=== PATIENT | female | born 2000 | race Caucasian/White ===

== ENCOUNTER 2018-11-05 11:33 | Emergency (ER) | payer OTHER ==
[~2018-11-05] VITALS: Ht 152.4 cm; Wt 68.0 kg
[2018-11-05 11:38] VITALS: BP 124/72
--- NOTE | 2018-11-05 11:42 | NUR ---
BIB SELF. AAO X4 C/O STYE X4 DAYS. PT DENIES PAIN AT THIS TIME, BUT STATES THAT STYE IS TENDER TO TOUCH. SWELLING, REDNESS, AND STYE VISIBLE IN LT UPPER EYE LID. PT STATES THAT SHE USED HER MOTHER'S MEDICATION, ERYTHROMYCIN OINTMENT YESTERDAY. DENIES BLURRED VISION, FEVER, N/V. STEADY GAIT. HOB UP. BED SIDE RAILS UP X1. ON LOW BED POSITION, LOCKED. ER MADE AWARE OF PT STATUS.
--- NOTE | 2018-11-05 11:50 | NUR ---
DR OZUNA AT BEDSIDE FOR PT EVALUATION
[2018-11-05 12:05] VITALS: BP 124/72
--- NOTE | 2018-11-05 12:05 | NUR ---
Patient discharged with v/s stable. Written and verbal after care instructions given and explained. Patient alert, oriented and verbalized understanding of instructions. Ambulatory with steady gait. All questions addressed prior to discharge. ID band removed. Patient advised to follow up with PMD. Rx of Tobramycin 0.3% ophthalmic mina,Naprosyn given. Patient educated on indication of medication including possible reaction and side effects. Opportunity to ask questions provided and answered.
== END 2018-11-05 12:05 | disposition home or self-care (01) ==
LOC: MED 11:33
DX: H00.014 Hordeolum externum left upper eyelid (principal); Z88.0 Allergy status to penicillin
CPT/HCPCS: 99283

== ENCOUNTER 2020-05-24 09:43 | Emergency (ER) | payer MEDICAID, OTHER ==
[~2020-05-24] VITALS: Ht 152.4 cm; Wt 68.0 kg
[2020-05-24 09:54] VITALS: BP 135/85
--- NOTE | 2020-05-24 09:58 | NUR ---
PATIENT IN TENT
[2020-05-24 11:13] LABS: BASOPHILS % (AUTO) 0.5 % (0.0-2.0); EOSINOPHILS % (AUTO) 0.1 % (0.0-4.0); HEMATOCRIT 42.4 % (36-48); HEMOGLOBIN 13.9 g/dL (12.0-16.0); LYMPHOCYTES # (AUTO) 1.1 K/uL (2.5-16.5); LYMPHOCYTES % (AUTO) 13.5 % (20.5-51.1); MEAN CORPUSCULAR HEMOGLOBIN 28 pg (27-31); MEAN CORPUSCULAR HGB CONC 33 g/dL (33-37); MONOCYTES # (AUTO) 0.9 K/uL (0.8-1.0); MONOCYTES % (AUTO) 11.2 % (1.7-9.3); NEUTROPHILS # (AUTO) 6.2 K/uL (1.8-7.7); NEUTROPHILS % (AUTO) 74.7 % (42.2-75.2); PLATELET COUNT (AUTO) 157 K/uL (140-450); RED BLOOD CELL COUNT(AUTO) 4.93 MIL/uL (4.20-5.40); RED CELL DISTRIBUTION WIDTH 15.2 % (11.6-13.7); WHITE BLOOD COUNT (AUTO) 8.4 K/uL (4.8-10.8)
[2020-05-24 11:52] LABS: APPEARANCE,URINE CLEAR (CLEAR); BILIRUBIN,URINE NEGATIVE (NEGATIVE); BLOOD, URINE TRACE-L (NEGATIVE); COLOR,URINE YELLOW (YELLOW); LEUKOCYTE ESTERASE ,URINE NEGATIVE (NEGATIVE); NITRITE, URINE NEGATIVE (NEGATIVE); PH,URINE 6.5 (5.0-9.0); UGLUCOSE NEGATIVE (NEGATIVE)
[2020-05-24 12:04] LABS: RBC,URINE NONE SEEN /HPF (0-5); WBC,URINE 0-5 /HPF (0-5)
[2020-05-24 12:44] VITALS: BP 128/81
== END 2020-05-24 12:44 | disposition home or self-care (01) ==
LOC: MED 09:43
DX: R50.9 Fever, unspecified (principal); K13.29 Other disturbances of oral epithelium, including tongue; F12.90 Cannabis use, unspecified, uncomplicated; Z88.0 Allergy status to penicillin
CPT/HCPCS: 36415; 81001; 81025; 85025; 99283

== ENCOUNTER 2020-05-26 09:47 | Emergency (ER) | payer MEDICAID, SELFPAY ==
[~2020-05-26] VITALS: Ht 152.4 cm; Wt 68.0 kg
[2020-05-26 10:05] VITALS: BP 106/58
--- NOTE | 2020-05-26 10:14 | NUR ---
20/F BIB SELF C/O INTERMITENT FEVER X 4 DAYS. SEEN HERE SAME S/S. PT HAD COVID TESTED 05/24/20;PENDING RESULT. PMH: DENIES
--- NOTE | 2020-05-26 10:19 | NUR ---
PT STATED HER COVID TESTED : NEGATIVE RESULT.
[2020-05-26 10:35] VITALS: BP 106/58
== END 2020-05-26 10:34 | disposition home or self-care (01) ==
LOC: MED 09:47
DX: R50.9 Fever, unspecified (principal)
CPT/HCPCS: 99282

== ENCOUNTER 2021-02-11 08:29 | Emergency (ER) | payer MEDICAID, SELFPAY ==
[~2021-02-11] VITALS: Ht 152.4 cm; Wt 65.8 kg
[2021-02-11 08:47] VITALS: BP 131/79
--- NOTE | 2021-02-11 09:05 | NUR ---
20 YO FEMALE BIBS C/O N/V/D AND STABBING PAIN 5/10 TO ABDOMEN. PATIENT STATES AT APPROX 6PM LAST NIGHT SHE WENT TO [employer] AND PURCHASED A HOT AND READY THAT COULD HAVE POSSIBLY BEEN . AT APPROX 4AM PT BEGAN VOMMITING DESCRIBES BROWN WITH POSSIBLE RED SPOTS. SHE STATES SHE CANNOT HOLD ANYTHING DOWN. AT APPROX 7AM PT BEGAN HAVING DIARRHEA DESCRIBES NORMAL COLOR TO PT. DENIES FEVER, CHILLS, CHEST PAIN, SOB. PT IS A&OX4, RR EVEN AND UNLABORED. PMH: NONE ALLERGIES: PCN.
[2021-02-11] MEDS ORDERED: ONDANSETRON 4 MG ODT PO ONE (09:25)
[2021-02-11] MEDS ORDERED: DOXY1TCP PO (11:49)
--- NOTE | 2021-02-11 12:00 | NUR ---
PT ELOPED FROM FACILITY.
== END 2021-02-11 12:00 | disposition left against medical advice (07) ==
LOC: MED 08:29
DX: O21.8 Other vomiting complicating pregnancy (principal); O26.899 Other specified pregnancy related conditions, unspecified trimester; R19.7 Diarrhea, unspecified; F12.90 Cannabis use, unspecified, uncomplicated; J45.909 Unspecified asthma, uncomplicated; Z88.0 Allergy status to penicillin; Z79.899 Other long term (current) drug therapy
CPT/HCPCS: 81002; 81025; 99283; Q0162